=== PATIENT | female | born 1980 | race Caucasian/White ===

== ENCOUNTER 2020-08-14 05:06 | Emergency (ER) | payer OTHER, SELFPAY ==
[2020-08-14 05:43] LABS: Urine Blood TRACE (NEG); Urine Glucose NEGATIVE (NEG); Urine Protein NEGATIVE (NEG); Urine Specific Gravity >1.030 (1.005-1.030); Urine pH 5.5 (5.0-7.0)
[2020-08-14 06:25] LABS: Absolute Lymphocytes (CBC) 1.9 K/uL (0.7-4.9); Basophils % 0.6 % (0-1.3); Hematocrit 33.1 % (36.0-45.0); Lymphocytes % 21.1 % (15.3-44.8); MPV 8.7 fL (7.6-11.3); RBC Red Blood Cell Count 3.63 M/uL (3.86-4.86)
[2020-08-14 06:34] LABS: Urine Bacteria <20 /HPF (<20); Urine RBC <5 /HPF (NONE SEEN)
[2020-08-14 06:35] LABS: Urine Culture Reflex Order REFLEXED
[2020-08-14 07:11] LABS: BUN Blood Urea Nitrogen 8 mg/dL (7-18); Bicarbonate 22 mmol/L (21-32); Glucose Level 96 mg/dL (74-106); HCG, Quantitative 74180 mIU/mL (1-3); Potassium 3.8 mmol/L (3.5-5.1); Sodium Level 139 mmol/L (136-145)
--- NOTE | 2020-08-14 08:34 | EDPHYS ---
Physician Documentation [facility] Name: Jailene Arrington Age: 40 yrs Sex: Female : 1980 Arrival Date: 08/14/2020 Time: 05:09 Bed 3 Private MD: ED Physician Stephen Beal HPI: 08/14 05:48 This 40 yrs old Female presents to ER via Ambulatory with complaints of Ear mh7 Pain, Vaginal Bleeding, +5 WKS PREG.. 05:48 The patient presents to the emergency department with vaginal bleeding, that is light, mh7 described as spotting. course: care: none, Leakage of Fluid: none appreciated, Ultrasound: the patient has not had an ultrasound, Risk/complications: no obvious risks or complications are appreciated. Previous pregnancies: in previous pregnancies patient has had. Associated signs and symptoms: Pertinent positives: vaginal bleeding, Pertinent negatives: abdominal pain, chest pain, diarrhea, dysuria, fever, frequency, nausea, ruptured membranes, seizure, shortness of breath, vaginal discharge, vomiting. 05:50 The estimated gestational age is 5 weeks. Associated signs and symptoms: Pertinent mh7 positives: also has had left ear pain for 3 days. 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 - Social history:: Smoking status: Patient reports the use of cigarette tobacco products, smokes one-half pack cigarettes per day. ROS: 05:50 Constitutional: Negative for fever, chills, and weight loss, Eyes: Negative for injury, mh7 pain, redness, and discharge, Neck: Negative for injury, pain, and swelling, Cardiovascular: Negative for chest pain, palpitations, and edema, Respiratory: Negative for shortness of breath, cough, wheezing, and pleuritic chest pain, Abdomen/GI: Negative for abdominal pain, nausea, vomiting, diarrhea, and constipation, Back: Negative for injury and pain, MS/Extremity: Negative for injury and deformity, Skin: Negative for injury, rash, and discoloration, Neuro: Negative for headache, weakness, numbness, tingling, and seizure, Psych: Negative for depression, anxiety, suicide ideation, homicidal ideation, and hallucinations, Allergy/Immunology: Negative for hives, rash, and allergies, Endocrine: Negative for neck swelling, polydipsia, polyuria, polyphagia, and marked weight changes, Hematologic/Lymphatic: Negative for swollen nodes, abnormal bleeding, and unusual bruising. Exam: 05:50 Constitutional: This is a well developed, well nourished patient who is awake, alert, mh7 and in no acute distress. Head/Face: Normocephalic, atraumatic. Eyes: Pupils equal round and reactive to light, extra-ocular motions intact. Lids and lashes normal. Conjunctiva and sclera are non-icteric and not injected. Cornea within normal limits. Periorbital areas with no swelling, redness, or edema. ENT: Nares patent. No nasal discharge, no septal abnormalities noted. Tympanic membranes are normal and external auditory canals are clear. Oropharynx with no redness, swelling, or masses, exudates, or evidence of obstruction, uvula midline. Mucous membranes moist. Neck: Trachea midline, no thyromegaly or masses palpated, and no cervical lymphadenopathy. Supple, full range of motion without nuchal rigidity, or vertebral point tenderness. No Meningismus. Chest/axilla: Normal chest wall appearance and motion. Nontender with no deformity. No lesions are appreciated. Cardiovascular: Regular rate and rhythm with a normal S1 and S2. No gallops, murmurs, or rubs. Normal PMI, no JVD. No pulse deficits. Respiratory: Lungs have equal breath sounds bilaterally, clear to auscultation and percussion. No rales, rhonchi or wheezes noted. No increased work of breathing, no retractions or nasal flaring. Abdomen/GI: Soft, non-tender, with normal bowel sounds. No distension or tympany. No guarding or rebound. No evidence of tenderness throughout. Back: No spinal tenderness. No costovertebral tenderness. Full range of motion. Skin: Warm, dry with normal turgor. Normal color with no rashes, no lesions, and no evidence of cellulitis. MS/ Extremity: Pulses equal, no cyanosis. Neurovascular intact. Full, normal range of motion. Neuro: Awake and alert, GCS 15, oriented to person, place, time, and situation. Cranial nerves II-XII grossly intact. Motor strength 5/5 in all extremities. Sensory grossly intact. Cerebellar exam normal. Normal gait. Psych: Awake, alert, with orientation to person, place and time. Behavior, mood, and affect are within normal limits. 06:38 : CVA tenderness, is absent, Pelvic Exam: The exam is refused by the [facility] patient/guardian. The risks and consequences are understood by the patient, Bladder: is normal, non-distended, non-tender. Vital Signs: 05:27 BP 125 / 75; Pulse 105; Resp 16; Temp 98.6(O); Pulse Ox 100% on R/A; Weight 49.9 kg lp1 (R); Height 5 ft. 3 in. (160.02 cm) (R); 07:00 BP 119 / 78; Pulse 75; Resp 16; Pulse Ox 100% ; bp 08:06 BP 108 / 76; Pulse 84; Resp 16; Temp 97.9(TE); Pulse Ox 100% on R/A; mh5 08:56 BP 113 / 77; Pulse 71; Resp 17; Temp 98; Pulse Ox 100% ; bp 05:27 Body Mass Index 19.49 (49.90 kg, 160.02 cm) lp1 MDM: 05:44 Patient medically screened. [facility] 08:44 Data reviewed: vital signs, nurses notes, lab test result(s), radiologic studies. kdr Counseling: I had a detailed discussion with the patient and/or guardian regarding: the historical points, exam findings, and any diagnostic results supporting the discharge/admit diagnosis, lab results, radiology results, the need for outpatient follow up. ED course: The patient was feeling much better and has no new c/o or concern. She was happy with the plan for discharge and follow-up. 08/14 05:23 Order name: Urine Microscopic Only; Complete Time: 06:37 ds4 08/14 05:24 Order name: Urine --Ancillary (enter results); Complete Time: 06:37 ds4 08/14 05:24 Order name: Urine Dipstick--Ancillary (enter results); Complete Time: 06:37 4 08/14 05:45 Order name: Quantitative Hcg; Complete Time: 07:54 7 08/14 05:45 Order name: Abo/rh Typing; Complete Time: 06:52 7 08/14 05:45 Order name: Basic Metabolic Panel; Complete Time: 07:54 [facility] 08/14 05:45 Order name: CBC with Diff; Complete Time: 06:37 [facility] 08/14 05:45 Order name: IV Saline Lock; Complete Time: 06:53 7 08/14 05:45 Order name: Labs collected and sent; Complete Time: 06:53 [facility] 08/14 05:45 Order name: NPO; Complete Time: 05:52 [facility] 08/14 05:45 Order name: Urine Dipstick-Ancillary (obtain specimen); Complete Time: 05:51 [facility] 08/14 05:45 Order name: US Transvaginal Ob; Complete Time: 18:25 [facility] 08/14 06:36 Order name: Urine Culture; Complete Time: 18:25 EDMS Administered Medications: No medications were administered Disposition: 08/14/20 08:33 Discharged to Home. Impression: Abnormal uterine and vaginal bleeding, unspecified, related conditions, unspecified. - Condition is Stable. - Discharge Instructions: Earache, Adult, Vaginal Bleeding During , First Trimester, [id number]. - Medication Reconciliation Form, Thank You Letter form. - Follow up: Private Physician; When: 2 - 3 days; Reason: If symptoms return, Further diagnostic work-up, Recheck today's complaints, Continuance of care, Re-evaluation by your physician. - Problem is new. - Symptoms have improved. Signatures: Dispatcher [employer] EDMS Melva Mart FNP-C FNP-Stephen Brandt MD MD [facility] Janice Ramírez RN RN lp1 Brian Urbina RN RN bp Montana Mendieta MD MD 7 Corrections: (The following items were deleted from the chart) 08:58 08:33 08/14/2020 08:33 Discharged to Home. Impression: Abnormal uterine and vaginal bp bleeding, unspecified; related conditions, unspecified. Condition is Stable. Forms are Medication Reconciliation Form, Thank You Letter, Antibiotic Education, Prescription Opioid Use. Follow up: Private Physician; When: 2 - 3 days; Reason: If symptoms return, Further diagnostic work-up, Recheck today's complaints, Continuance of care, Re-evaluation by your physician. Problem is new. Symptoms have improved. kdr
--- NOTE | 2020-08-14 08:34 | ER ---
Nurse's Notes [facility] Name: Jailene Arrington Age: 40 yrs Sex: Female : 1980 Arrival Date: 08/14/2020 Time: 05:09 Bed 3 Private MD: Diagnosis: Abnormal uterine and vaginal bleeding, unspecified; related conditions, unspecified Presentation: 08/14 05:27 Chief complaint: Patient states: Left ear pain x 3 days, without fever, cough, lp1 congestion; Reports vaginal bleeding x 2 days, "with tissue"; States positive tests at home, LMP 05/31/20. Coronavirus screen: Client denies travel out of the [place] in the last 14 days. At this time, the client does not indicate any symptoms associated with coronavirus-19. Ebola Screen: No symptoms or risks identified at this time. Initial Sepsis Screen: Does the patient meet any 2 criteria? No. Patient's initial sepsis screen is negative. Does the patient have a suspected source of infection? No. Patient's initial sepsis screen is negative. Risk Assessment: Do you want to hurt yourself or someone else? Patient reports no desire to harm self or others. Onset of symptoms was August 14, 2020. 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 - Social history:: Smoking status: Patient reports the use of cigarette tobacco products, smokes one-half pack cigarettes per day. Screenin:50 Abuse screen: Denies threats or abuse. Denies injuries from another. Nutritional lp1 screening: No deficits noted. Tuberculosis screening: No symptoms or risk factors identified. Fall Risk None identified. Assessment: 05:49 General: Appears in no apparent distress. Behavior is appropriate for age. Pain: lp1 Complains of pain in suprapubic area Pain currently is 7 out of 10 on a pain scale. Quality of pain is described as crampy. Neuro: Level of Consciousness is awake, alert, obeys commands, Oriented to person, place, time, situation. Cardiovascular: Patient's skin is warm and dry. Respiratory: Respiratory effort is even, unlabored. GI: Abdomen is non-distended. : Reports vaginal bleeding that is. EENT: Reports pain in left ear. Derm: Skin is pink, warm \\T\\ dry. Musculoskeletal: No deficits noted. 07:00 Reassessment: RECD REPORT FROM LAN HAQUE. 40YO WF P/W EAR PAIN AND VAG BLEEDING WITH bp +UPT. U/S PENDING. 08:00 Reassessment: Patient appears in no apparent distress at this time. Patient and/or bp family updated on plan of care and expected duration. Pain level reassessed. U/S AT B/S. 08:56 Reassessment: PT D/C HOME AMBULATORY WITH FAMILY, DX WITH EAR ACHE AND ABNORMAL UTERINE bp BLEEDING. Vital Signs: 05:27 BP 125 / 75; Pulse 105; Resp 16; Temp 98.6(O); Pulse Ox 100% on R/A; Weight 49.9 kg lp1 (R); Height 5 ft. 3 in. (160.02 cm) (R); 07:00 BP 119 / 78; Pulse 75; Resp 16; Pulse Ox 100% ; bp 08:06 BP 108 / 76; Pulse 84; Resp 16; Temp 97.9(TE); Pulse Ox 100% on R/A; mh5 08:56 BP 113 / 77; Pulse 71; Resp 17; Temp 98; Pulse Ox 100% ; bp 05:27 Body Mass Index 19.49 (49.90 kg, 160.02 cm) lp1 ED Course: 05:09 Patient arrived in ED. bp1 05:27 Montana Mendieta MD is Attending Physician. mh7 05:27 Lan Ramírez, SHABNAM is Primary Nurse. lp1 05:29 Triage completed. lp1 05:29 Arm band placed on. lp1 05:51 Patient has correct armband on for positive identification. lp1 05:51 No provider procedures requiring assistance completed. lp1 06:10 Inserted saline lock: 22 gauge in left antecubital area, using aseptic technique. Blood ds4 collected. 07:04 Attending Physician role handed off by Montana Mendieta MD kdr 07:04 Stephen Beal MD is Attending Physician. kdr 07:05 Primary Nurse role handed off by Lan Ramírez RN bp 07:05 Brian Urbina, RN is Primary Nurse. bp 08:07 US Transvaginal Ob In Process Unspecified. EDMS 08:56 IV discontinued, intact, bleeding controlled, No redness/swelling at site. Pressure bp dressing applied. Administered Medications: No medications were administered Outcome: 08:33 Discharge ordered by MD. kdr 08:56 Discharged to home ambulatory, with family. bp 08:56 Condition: stable 08:56 Discharge instructions given to patient, Instructed on discharge instructions, follow up and referral plans. Demonstrated understanding of instructions, follow-up care. 08:58 Patient left the ED. bp Addendum: 08/17/2020 18:41 Addendum: Culture Results: Positive urine culture. Patient was not prescribed s s antibiotics at discharge. Report given to ASHLEY for further evaluation and then to receiver for follow up with patient. Phone call Attempt #1 attempted to call patient. No answer. Left . Signatures: Dispatcher [employer] EDOK Stephen Beal MD MD [facility] Kathrin Brown RN RN Lan Ramírez RN RN lp1 Benedict Cuevas ds4 Adry Gauthier mh5 Brian Urbina RN RN [facility] Montana Mendieta MD MD 7
--- NOTE | 2020-08-14 08:42 | RAD REPORT ---
EXAM DESCRIPTION: US - Transvaginal OB - 08/14/2020 8:07 am CLINICAL HISTORY: VAGINAL BLEEDING, COMPARISON: TRANSVAGINALOB dated 01/13/2015 FINDINGS: Uterus is normal size. No myometrial mass. Cervical canal appears long and closed with cr sed internal os. Normal shaped intrauterine gestational sac identified. pole and yolk sac ident ified. Heart rate range was 158-170 BPM. No intrauterine hematoma or mass identifiable. Left ovary was identified and unremarkable. Normal flow within the stroma. Right ovary was not identified due to bowel obscuring the ovary. No right adnexal mass. No blood or f luid in the cul de sac. [place]-rump length measurements correspond to an 8 week 5 day age. Calculated KEYUR is 03/21/2021. IMPRESSION: Single 8 week 5 day IUP with an normal shaped gestational sac. Heart rate is normal. No intrauterine hematoma or mass. Cervical canal is closed.
[2020-08-14 09:07] VITALS: O2SAT 100
[2020-08-14 09:11] VITALS: BP 113/77; TEMP 98
== END 2020-08-14 08:58 | disposition home or self-care (01) ==
LOC: ER 05:06
DX: O20.9 Hemorrhage in early pregnancy, unspecified (principal); O99.331 Smoking (tobacco) complicating pregnancy, first trimester; F17.210 Nicotine dependence, cigarettes, uncomplicated; Z3A.08 8 weeks gestation of pregnancy; Z88.0 Allergy status to penicillin; Z88.1 Allergy status to other antibiotic agents
CPT/HCPCS: 36415; 76817; 80048; 81003; 81015; 81025; 84702; 85025; 86900; 86901; 87077; 87086; 87088; 87186; 99284